=== PATIENT | male | born 1945 | race Caucasian/White ===

== ENCOUNTER 2017-06-19 11:57 | Emergency (ER) | payer OTHER ==
[~2017-06-19] VITALS: Ht 175.3 cm; Wt 81.7 kg
[~2017-06-19 11:57] MED LIST: ZOCOR 20 MG TAB20 M1 PO
[2017-06-19] MEDS ORDERED: LISINOPRIL10 MG PO (12:19)
[2017-06-19] MEDS ORDERED: NEXIUM40 MG PO (12:19)
[2017-06-19] MEDS ORDERED: BACTRIM DS TAB1 EACH PO (12:26)
[2017-06-19] MEDS ORDERED: KEFLEX500 M1 PO (12:26)
[2017-06-19 12:30] VITALS: BP 154/42
== END 2017-06-19 12:31 | disposition home or self-care (01) ==
LOC: M.ERS 11:57
DX: L03.113 Cellulitis of right upper limb (principal); K21.9 Gastro-esophageal reflux disease without esophagitis; E78.00 Pure hypercholesterolemia, unspecified

== ENCOUNTER 2018-10-09 17:06 | Emergency (ER) | payer OTHER ==
[~2018-10-09] VITALS: Ht 175.3 cm; Wt 68.0 kg
[~2018-10-09 17:06] MED LIST changes: +BACTRIM DS TAB1 EACH PO; +KEFLEX500 M1 PO; +LISINOPRIL10 MG PO; +NEXIUM40 MG PO
[2018-10-09 17:33] VITALS: BP 155/79
== END 2018-10-09 17:34 | disposition home or self-care (01) ==
LOC: M.ERS 17:06
DX: T16.1XXA Foreign body in right ear, initial encounter (principal); I10 Essential (primary) hypertension; E78.00 Pure hypercholesterolemia, unspecified; K21.9 Gastro-esophageal reflux disease without esophagitis; Y92.89 Other specified places as the place of occurrence of the external cause